=== PATIENT | male | born 1960 | race African-American/Black ===

== ENCOUNTER 2016-09-16 20:12 | Emergency (ER) | payer MEDICAID ==
[~2016-09-16] VITALS: Ht 175.3 cm; Wt 100.0 kg
[2016-09-16] MEDS ORDERED: BACITRACIN ZINC OINT UDPKT TOP ONE (21:45)
[2016-09-16] MEDS ORDERED: LIDOCAINE HCL 1% 20ML VIAL (Pyxis) INJ MC ONE (21:45)
[2016-09-16] MEDS ORDERED: TETANUS, DIPHTHERIA, PERTUSSIS VAC/PF 0.5ML (>7YR OLD) IM ONE (21:45)
[2016-09-16] MEDS ORDERED: ACETAMINOPHEN WITH CODEINE 300/30MG TABLET PO ONE (21:45)
[2016-09-16 22:24] VITALS: BP 145/83
== END 2016-09-16 22:26 | disposition home or self-care (01) ==
LOC: ER 22:02
DX: S61.411A Laceration without foreign body of right hand, initial encounter (principal); Z98.890 Other specified postprocedural states; Z87.828 Personal history of other (healed) physical injury and trauma; W22.8XXA Striking against or struck by other objects, initial encounter; Y92.018 Other place in single-family (private) house as the place of occurrence of the external cause
CPT/HCPCS: 12001; 90471; 90715; 99283; J3490; Z7610

== ENCOUNTER 2016-11-08 11:39 | Emergency (ER) | payer MEDICAID, OTHER ==
[~2016-11-08] VITALS: Ht 175.3 cm; Wt 100.0 kg
[2016-11-08] MEDS ORDERED: SODIUM CHLORIDE 0.9% 1,000 ML IV ONE (14:47)
[2016-11-08] MEDS ORDERED: ONDANSETRON HCL 4MG/2ML VIAL IV STA (14:47)
[2016-11-08] MEDS ORDERED: MECLIZINE 25MG TABLET PO ONE (15:00)
[2016-11-08 15:22] LABS: BASOPHILS % 0.4 % (0.0-2.0); EOSINOPHILS % 4.3 % (0.0-5.0); HEMATOCRIT. 42.5 % (42.0-52.0); HEMOGLOBIN. 14.1 g/dL (14.0-18.0); LYMPHOCYTES % 36.4 % (20.0-50.0); MEAN CORPUSCULAR HEMOGLOBIN 28.8 pg (28.0-32.0); MEAN CORPUSCULAR VOLUME 86.6 fL (80.0-94.0); MEAN PLATELET VOLUME 8.6 fl (7.4-10.4); MONOCYTES % 9.2 % (2.0-8.0); NEUTROPHILS % 49.7 % (40.0-76.0); PLATELET 335 x1000/uL (130-400); RED BLOOD CELL COUNT 4.91 mill/uL (4.7-6.1); RED CELL DISTRIBUTION WIDTH 13.5 % (11.6-14.6)
[2016-11-08 15:26] LABS: CHLORIDE 107 mEq/L (98-107)
[2016-11-08 15:27] LABS: PROTHROMBIN TIME 10.7 sec
[2016-11-08 15:35] LABS: CARBON DIOXIDE 28 mEq/L (21-32)
[2016-11-08 15:51] VITALS: BP 134/98
== END 2016-11-08 17:43 | disposition home or self-care (01) ==
LOC: ER 14:58
DX: H81.399 Other peripheral vertigo, unspecified ear (principal)
CPT/HCPCS: 36415; 80053; 85025; 85610; 93005; 96361; 96374; 99285; J2405; J7030; Z7610; J8597

== ENCOUNTER 2017-05-13 09:01 | Emergency (ER) | payer MEDICAID ==
[~2017-05-13] VITALS: Ht 175.3 cm; Wt 112.0 kg
[2017-05-13] MEDS ORDERED: KETOROLAC 60MG/2ML VIAL IM ONE (10:45)
[2017-05-13 12:48] VITALS: BP 145/73
== END 2017-05-13 13:03 | disposition home or self-care (01) ==
LOC: ER 09:06
DX: M54.12 Radiculopathy, cervical region (principal); M25.511 Pain in right shoulder; R05 Cough; Z87.828 Personal history of other (healed) physical injury and trauma
CPT/HCPCS: 71010; 96372; 99283; J1885

== ENCOUNTER 2018-03-10 08:54 | Emergency (ER) | payer MEDICAID ==
[~2018-03-10] VITALS: Ht 172.7 cm; Wt 100.0 kg
[2018-03-10 10:20] LABS: BASOPHILS % 0.5 % (0.0-2.0); HEMATOCRIT. 42.2 % (42.0-52.0); HEMOGLOBIN. 13.8 g/dL (14.0-18.0); LYMPHOCYTES % 37.2 % (20.0-50.0); MEAN CORPUSCULAR HEMOGLOBIN 28.8 pg (28.0-32.0); MEAN CORPUSCULAR VOLUME 87.9 fL (80.0-94.0); MEAN PLATELET VOLUME 9.1 fl (7.4-10.4); MONOCYTES % 10.8 % (2.0-8.0); NEUTROPHILS % 47.5 % (40.0-76.0); PLATELET 321 x1000/uL (130-400); RED CELL DISTRIBUTION WIDTH 13.8 % (11.6-14.6)
[2018-03-10 10:27] LABS: CHLORIDE 105 mEq/L (98-107)
[2018-03-10 10:29] LABS: PARTIAL THROMBOPLASTIN TIME 33.4 sec (23.4-31.0); PROTHROMBIN TIME 10.3 sec (9.1-11.1)
[2018-03-10] MEDS ORDERED: IOHEXOL-300 100 ML BOTTLE ONE (11:37)
[2018-03-10 13:03] VITALS: BP 168/89
== END 2018-03-10 13:08 | disposition home or self-care (01) ==
LOC: ER 08:54
DX: R13.10 Dysphagia, unspecified (principal); R07.89 Other chest pain; Z87.891 Personal history of nicotine dependence
CPT/HCPCS: 36415; 70491; 71045; 80053; 84484; 85025; 85610; 85730; 93005; 99285; Q9967

== ENCOUNTER 2020-02-06 22:22 | Emergency (ER) | payer MEDICAID ==
[~2020-02-06] VITALS: Ht 175.3 cm; Wt 100.0 kg
[2020-02-07] MEDS ORDERED: LIDOCAINE HCL/PF 1% 10 MG/ML 5ML VIAL IJ ONE (01:30)
[2020-02-07] MEDS ORDERED: IBUPROFEN 600MG TABLET PO ONE (01:30)
[2020-02-07] MEDS ORDERED: BACITRACIN ZINC OINT UDPKT TOP ONE (01:30)
[2020-02-07 02:32] VITALS: BP 155/83
== END 2020-02-07 02:34 | disposition home or self-care (01) ==
LOC: ER 22:22
DX: S61.211A Laceration without foreign body of left index finger without damage to nail, initial encounter (principal); W26.8XXA Contact with other sharp object(s), not elsewhere classified, initial encounter; Y93.89 Activity, other specified; Y92.89 Other specified places as the place of occurrence of the external cause; Y99.8 Other external cause status; Z98.890 Other specified postprocedural states
CPT/HCPCS: 12001; 99283; J3490

== ENCOUNTER 2020-02-09 10:18 | Emergency (ER) | payer MEDICAID ==
[~2020-02-09] VITALS: Ht 175.3 cm; Wt 100.0 kg
[2020-02-09 10:23] VITALS: BP 146/86
== END 2020-02-09 11:00 | disposition home or self-care (01) ==
LOC: ER 10:18
DX: S61.211D Laceration without foreign body of left index finger without damage to nail, subsequent encounter (principal); Z98.890 Other specified postprocedural states; X58.XXXD Exposure to other specified factors, subsequent encounter
CPT/HCPCS: 29130; 99283

== ENCOUNTER 2020-02-10 02:13 | Emergency (ER) | payer MEDICAID, OTHER ==
[~2020-02-10] VITALS: Ht 177.8 cm; Wt 100.0 kg
[2020-02-10] MEDS ORDERED: KETOROLAC 30MG/ML VIAL IV STA (03:53)
[2020-02-10] MEDS ORDERED: SODIUM CHLORIDE 0.9% 1,000 ML IV ONE (03:53)
[2020-02-10] MEDS ORDERED: ONDANSETRON HCL 4MG/2ML INJ IV STA (03:53)
[2020-02-10 04:11] LABS: BASOPHILS % 0.7 % (0.0-2.0); EOSINOPHILS % 0.7 % (0.0-5.0); HEMATOCRIT. 40.6 % (42.0-52.0); HEMOGLOBIN. 13.4 g/dL (14.0-18.0); LYMPHOCYTES % 17.8 % (20.0-50.0); MEAN CORPUSCULAR VOLUME 87.8 fL (80.0-94.0); MEAN PLATELET VOLUME 8.6 fl (7.4-10.4); MONOCYTES % 9.2 % (2.0-8.0); NEUTROPHILS % 71.6 % (40.0-76.0); PLATELET 316 x1000/uL (130-400); RED BLOOD CELL COUNT 4.63 mill/uL (4.7-6.1); RED CELL DISTRIBUTION WIDTH 13.5 % (11.6-14.6)
[2020-02-10 04:24] LABS: PROTHROMBIN TIME 10.5 sec (9.6-11.0)
[2020-02-10 04:25] LABS: CHLORIDE 107 mEq/L (98-107)
[2020-02-10 07:10] VITALS: BP 156/72
== END 2020-02-10 07:20 | disposition home or self-care (01) ==
LOC: ER 02:13
DX: R10.13 Epigastric pain (principal); Z98.890 Other specified postprocedural states
CPT/HCPCS: 36415; 80053; 83690; 85025; 85610; 93005; 96361; 96374; 96375; 99284; J1885; J2405; J7030

== ENCOUNTER 2020-02-16 09:39 | Inpatient (IN) | payer MEDICAID, OTHER ==
[~2020-02-16] VITALS: Ht 175.3 cm; Wt 99.8 kg
[2020-02-16] MEDS ORDERED: MORPHINE SULFATE 4 MG/ML CPJ (NOT FOR IM USE) IV STA (10:13)
[2020-02-16] MEDS ORDERED: SODIUM CHLORIDE 0.9% 1,000 ML IV ONE (10:13)
[2020-02-16] MEDS ORDERED: ONDANSETRON HCL 4MG/2ML INJ IV ONE (10:15)
[2020-02-16 10:37] LABS: HEMATOCRIT. 43.8 % (42.0-52.0); HEMOGLOBIN. 14.6 g/dL (14.0-18.0); MEAN CORPUSCULAR HEMOGLOBIN 29.1 pg (28.0-32.0); MEAN CORPUSCULAR VOLUME 87.5 fL (80.0-94.0); MEAN PLATELET VOLUME 8.5 fl (7.4-10.4); PLATELET 341 x1000/uL (130-400); RED BLOOD CELL COUNT 5.01 mill/uL (4.7-6.1); RED CELL DISTRIBUTION WIDTH 13.7 % (11.6-14.6)
[2020-02-16 10:43] LABS: CHLORIDE 105 mEq/L (98-107)
[2020-02-16 10:47] LABS: INR 1.1; PARTIAL THROMBOPLASTIN TIME 43.3 sec (23.4-31.0); PROTHROMBIN TIME 11.1 sec (9.6-11.0)
[2020-02-16 11:04] LABS: ATYPICAL LYMPHOCYTES 2; PLATELET ESTIMATE NORMAL
[2020-02-16 12:04] LABS: CLARITY URINE CLEAR (CLEAR); COLOR URINE YELLOW (YELLOW); KETONES URINE 1+ (NEGATIVE); LEUKOCYTE ESTERASE URINE NEGATIVE (NEGATIVE); NITRITE URINE NEGATIVE (NEGATIVE); OCCULT BLOOD URINE NEGATIVE (NEGATIVE); PROTEIN URINE NEGATIVE (NEGATIVE); SPECIFIC GRAVITY URINE 1.018 (1.005-1.030)
[2020-02-16] MEDS ORDERED: MORPHINE SULFATE 4 MG/ML CPJ (NOT FOR IM USE) IV ONE (16:15)
[2020-02-16] MEDS ORDERED: ACETAMINOPHEN 325MG TABLET PO PRN (19:30)
[2020-02-16] MEDS ORDERED: ONDANSETRON HCL 4MG/2ML INJ IV PRN (19:30)
[2020-02-16] MEDS: SODIUM CHLORIDE 0.9% 1,000 ML IV SCH (19:57)
[2020-02-16 22:30] VITALS: BP 151/81
[2020-02-16] MEDS: MORPHINE SULFATE 2 MG/ML CPJ (NOT FOR IM USE) IV PRN (22:36)
[2020-02-17] VITALS: BP 151/81
[2020-02-17] MEDS: MORPHINE SULFATE 2 MG/ML CPJ (NOT FOR IM USE) IV PRN ×4 (03:37→22:20)
[2020-02-17 04:00] VITALS: BP 139/84
[2020-02-17 08:00] VITALS: BP 124/82
[2020-02-17] MEDS: SODIUM CHLORIDE 0.9% 1,000 ML IV SCH ×2 (08:00→22:09)
[2020-02-17] MEDS: HYDROCODONE/ACETAMINOPHEN 5/325MG TABLET PO PRN (11:34)
[2020-02-17 12:00] VITALS: BP 184/94
[2020-02-17] MEDS ORDERED: LACTULOSE 20G/30ML UDC PO SCH (13:30)
[2020-02-17] MEDS ORDERED: CLONIDINE 0.1MG TABLET PO PRN (13:30)
[2020-02-17] MEDS: TAMSULOSIN HCL 0.4MG SR CAPSULE PO SCH (13:52)
[2020-02-17] MEDS: DOCUSATE SODIUM 250MG CAPSULE PO SCH (13:52)
[2020-02-17] MEDS: AMLODIPINE 10MG TABLET PO SCH (13:53)
[2020-02-17 16:00] VITALS: BP 142/84
[2020-02-17 20:00] VITALS: BP 142/70
[2020-02-18] VITALS: BP 139/58
[2020-02-18] MEDS: MORPHINE SULFATE 2 MG/ML CPJ (NOT FOR IM USE) IV PRN ×4 (02:36→21:08)
[2020-02-18 08:00] VITALS: BP 147/74
[2020-02-18] MEDS: AMLODIPINE 10MG TABLET PO SCH (08:46)
[2020-02-18] MEDS: DOCUSATE SODIUM 250MG CAPSULE PO SCH (08:46)
[2020-02-18] MEDS: TAMSULOSIN HCL 0.4MG SR CAPSULE PO SCH (08:46)
[2020-02-18] MEDS: SODIUM CHLORIDE 0.9% 1,000 ML IV SCH ×2 (11:33→20:43)
[2020-02-18 11:47] VITALS: BP 143/79
[2020-02-18] MEDS ORDERED: SODIUM CHLORIDE 0.9% 1,000 ML IV ONE (15:39)
[2020-02-18] MEDS ORDERED: HYDROMORPHONE HCL/PF 2MG/ML CPJ IV PRN (15:45)
[2020-02-18] MEDS ORDERED: ONDANSETRON HCL 4MG/2ML INJ IV PRN (15:45)
[2020-02-18] MEDS ORDERED: MEPERIDINE HCL/PF 25MG/ML CPJ IV PRN ×2 (15:45)
[2020-02-18] MEDS ORDERED: MORPHINE SULFATE 2 MG/ML CPJ (NOT FOR IM USE) IV PRN (15:45)
[2020-02-18] MEDS ORDERED: PROPOFOL 200MG/20ML VIAL IV ONE (15:47)
[2020-02-18] MEDS ORDERED: FENTANYL CITRATE/PF 50MCG/ML 2ML VIAL ONE (15:47)
[2020-02-18] MEDS ORDERED: METOCLOPRAMIDE HCL 10MG/2ML VIAL ONE (15:47)
[2020-02-18] MEDS ORDERED: SUCCINYLCHOLINE CHLORIDE 200MG/10ML IV ONE (15:47)
[2020-02-18] MEDS ORDERED: LIDOCAINE HCL/PF 1% 10 MG/ML 5ML VIAL ONE (15:47)
[2020-02-18] MEDS ORDERED: MIDAZOLAM HCL 2 MG/2 ML VIAL ONE (15:47)
[2020-02-18] MEDS ORDERED: GLYCOPYRROLATE 0.2 MG/ML 2ML VIAL ONE (15:47)
[2020-02-18] MEDS ORDERED: CEFAZOLIN SODIUM 1000MG/VIAL ONE (16:51)
[2020-02-19] MEDS: MORPHINE SULFATE 2 MG/ML CPJ (NOT FOR IM USE) IV PRN ×2 (00:24→10:45)
[2020-02-19] MEDS: HYDROCODONE/ACETAMINOPHEN 5/325MG TABLET PO PRN ×2 (04:24→08:32)
[2020-02-19 08:00] VITALS: BP 127/77
[2020-02-19] MEDS: TAMSULOSIN HCL 0.4MG SR CAPSULE PO SCH (08:31)
[2020-02-19] MEDS: AMLODIPINE 10MG TABLET PO SCH (08:31)
[2020-02-19] MEDS: DOCUSATE SODIUM 250MG CAPSULE PO SCH (08:32)
[2020-02-19] MEDS ORDERED: HYDROCODONE/ACETAMINOPHEN 5/325MG TABLET PO PRN (11:30)
[2020-02-19 11:43] VITALS: BP 141/65
[2020-02-19] MEDS ORDERED: SORBITOL 70% SOLN 30ML PO NR (12:00)
[2020-02-19] MEDS ORDERED: HYDR-4009 MT (13:37)
[2020-02-19] MEDS ORDERED: TAMS-11 MT (13:38)
[2020-02-19] MEDS: SODIUM CHLORIDE 0.9% 1,000 ML IV SCH (13:40)
[2020-02-19] MEDS ORDERED: DOCU250C14 MT (14:46)
[2020-02-19 15:16] VITALS: BP 127/61
[2020-02-19 15:33] LABS: BASOPHILS % 0.6 % (0.0-2.0); EOSINOPHILS % 4.4 % (0.0-5.0); HEMATOCRIT. 38.2 % (42.0-52.0); HEMOGLOBIN. 12.5 g/dL (14.0-18.0); LYMPHOCYTES % 34.9 % (20.0-50.0); MEAN CORPUSCULAR HEMOGLOBIN 28.7 pg (28.0-32.0); MEAN CORPUSCULAR VOLUME 87.8 fL (80.0-94.0); MEAN PLATELET VOLUME 8.8 fl (7.4-10.4); MONOCYTES % 13.8 % (2.0-8.0); NEUTROPHILS % 46.3 % (40.0-76.0); PLATELET 327 x1000/uL (130-400); RED BLOOD CELL COUNT 4.35 mill/uL (4.7-6.1); RED CELL DISTRIBUTION WIDTH 13.5 % (11.6-14.6)
[2020-02-19 15:43] LABS: CHLORIDE 108 mEq/L (98-107)
[2020-02-19 15:52] VITALS: BP 127/61
== END 2020-02-19 16:05 | disposition home or self-care (01) | DRG 465 ==
LOC: ER 09:39 → 6EST 16:23 → ENRESERV 21:21
PROVIDERS: ADMIT Internal Medicine; ATTEND Internal Medicine
PROC: 0T768DZ Dilation of Right Ureter with Intraluminal Device, Via Natural or Artificial Opening Endoscopic (ICD-10-PCS; principal; 2020-02-18)
DX: N13.2 Hydronephrosis with renal and ureteral calculous obstruction (principal); N17.0 Acute kidney failure with tubular necrosis; I10 Essential (primary) hypertension; N40.0 Benign prostatic hyperplasia without lower urinary tract symptoms; Z20.828 Contact with and (suspected) exposure to other viral communicable diseases; R73.03 Prediabetes; E66.9 Obesity, unspecified; Z68.32 Body mass index [BMI] 32.0-32.9, adult; Z71.3 Dietary counseling and surveillance
CPT/HCPCS: 36415; 71045; 74177; 76000; 80048; 80053; 81003; 84484; 85025; 86850; 86870; 86900; 93005; 99285; C1769; C2617; J0330; J0690; J2250; J2270; J2405; J2704; J2765; J3010; J3490; J7030; U0003-CS

== ENCOUNTER 2020-06-07 17:25 | Emergency (ER) | payer MEDICAID ==
[~2020-06-07] VITALS: Ht 175.3 cm; Wt 100.0 kg
[~2020-06-07 17:25] MED LIST: DOCU250C14 MT; HYDR-4009 MT; TAMS-11 MT
[2020-06-07] MEDS ORDERED: KETOROLAC 60MG/2ML VIAL IM ONE (18:15)
[2020-06-07 19:34] VITALS: BP 141/68
== END 2020-06-07 20:38 | disposition home or self-care (01) ==
LOC: ER 17:25
DX: S13.4XXA Sprain of ligaments of cervical spine, initial encounter (principal); M25.511 Pain in right shoulder; M25.512 Pain in left shoulder; Z98.890 Other specified postprocedural states; Z79.899 Other long term (current) drug therapy; V49.88XA Car occupant (driver) (passenger) injured in other specified transport accidents, initial encounter; Y93.89 Activity, other specified; Y92.89 Other specified places as the place of occurrence of the external cause; Y99.8 Other external cause status
CPT/HCPCS: 72040; 73030; 96372; 99284; J1885; 99283

== ENCOUNTER 2023-12-21 14:16 | Emergency (ER) | payer MEDICAID, OTHER ==
[~2023-12-21] VITALS: Ht 175.3 cm; Wt 95.0 kg
[2023-12-21 14:27] VITALS: O2SAT 98
[2023-12-21 15:02] LABS: BASOPHILS % 0.3 % (0.0-2.0); EOSINOPHILS % 0.3 % (0.0-5.0); HEMATOCRIT. 44.5 % (42.0-52.0); HEMOGLOBIN. 14.4 g/dL (14.0-18.0); LYMPHOCYTES % 18.2 % (20.0-50.0); MEAN CORPUSCULAR HGB CONC 32.2 g/dL (31.0-37.0); MEAN CORPUSCULAR VOLUME 90.1 fL (80.0-94.0); MEAN PLATELET VOLUME 8.8 fl (7.4-10.4); MONOCYTES % 11.1 % (2.0-8.0); NEUTROPHILS % 70.1 % (40.0-76.0); PLATELET 377 x1000/uL (130-400); RED BLOOD CELL COUNT 4.94 mill/uL (4.7-6.1); RED CELL DISTRIBUTION WIDTH 14.1 % (11.6-14.6)
[2023-12-21 15:10] LABS: CHLORIDE 110 mEq/L (98-107); POTASSIUM 3.8 mEq/L (3.5-5.1); SODIUM 142 mEq/L (136-145)
[2023-12-21 15:11] LABS: CARBON DIOXIDE 25 mEq/L (21-32)
[2023-12-21 15:12] LABS: CALCIUM 9.4 mg/dL (8.7-10.4)
[2023-12-21 15:16] LABS: CREATININE 1.1 mg/dL (0.6-1.3); GLUCOSE 124 mg/dL (70-105)
[2023-12-21 15:17] LABS: UREA NITROGEN BLOOD 13 mg/dL (9-23)
[2023-12-21] MEDS: ONDANSETRON HCL 4MG/2ML INJ IV STA (15:41)
[2023-12-21] MEDS: MORPHINE SULFATE 4 MG/ML INJ (FOR IV/IM USE) IV STA (15:41)
[2023-12-21] MEDS: SODIUM CHLORIDE 0.9% 1,000 ML IV ONE (15:45)
[2023-12-21 15:49] LABS: TROPONIN I HIGH SENSITIVITY < 4 ng/L (3.0-53)
[2023-12-21 15:59] LABS: INR 0.9; PROTHROMBIN TIME 10.6 sec (9.6-11.0)
[2023-12-21 16:33] LABS: TROPONIN I HIGH SENSITIVITY < 4 ng/L (3.0-53)
[2023-12-21 19:37] VITALS: TEMP 98.2
[2023-12-21] MEDS ORDERED: ONDA4TAB50 MT (20:24)
[2023-12-21] MEDS ORDERED: TOPUD MT (20:24)
[2023-12-21] MEDS ORDERED: DIPH1TAB24 MT (20:24)
[2023-12-21 21:47] VITALS: BP 138/77; PULSE 80; RESP 18
== END 2023-12-21 21:48 | disposition home or self-care (01) ==
LOC: ER 14:16
DX: K57.90 Diverticulosis of intestine, part unspecified, without perforation or abscess without bleeding (principal); K52.9 Noninfective gastroenteritis and colitis, unspecified; K40.20 Bilateral inguinal hernia, without obstruction or gangrene, not specified as recurrent; Z87.19 Personal history of other diseases of the digestive system
CPT/HCPCS: 99285; 74176; 96374; 96361; 71045; 96375; 80048; 83690; 85025; 85610; 84484; 36415; 93005; J2405; J2270; J7030